=== PATIENT | female | born 1960 | race Caucasian/White ===

== ENCOUNTER 2017-02-26 09:05 | Inpatient (IN) | payer BC ==
[2017-02-23 08:33] LABS: BASOPHILS 0.6 %; BASOPHILS ABSOLUTE 0.03 10/3/uL (0.0-0.16); EOSINOPHILS 2.4 %; EOSINOPHILS ABSOLUTE 0.12 10/3/uL (0.0-0.53); HEMOGLOBIN 14.9 g/dL (12.0-16.0); IMMATURE GRANULOCYTES 0.2 %; IMMATURE GRANULOCYTES ABSOLUTE 0.01 10/3/uL (0.0-0.11); LYMPHOCYTES 32.1 %; MEAN CORPUS HGB CONC 34.1 g/dL (32.0-36.0); MEAN CORPUSCULAR HEMOGLOB 29.4 pg (26.0-34.0); MEAN PLATELET VOLUME 9.6 fL (9.2-13.0); MONOCYTES 6.8 %; MONOCYTES ABSOLUTE 0.34 10/3/uL (0.21-1.20); NEUTROPHILS 57.9 %; NEUTROPHILS ABSOLUTE 2.89 10/3/uL (2.02-8.40); PLATELET COUNT 257 10/3/uL (150-400); RBC DISTRIBUTION WIDTH 12.6 % (12.0-16.0); RED CELL COUNT 5.06 10/6/uL (4.0-5.6)
[2017-02-23 08:34] LABS: HEMATOCRIT 43.7 % (36.0-48.0); MANUAL DIFF NO %; MEAN CORPUSCULAR VOLUME 86.4 fL (80-100)
[2017-02-23 08:39] LABS: PARTIAL THROMBO TIME 26.3 SEC (22.5-37.2); PROTIME (NOT ORD) 13.3 SEC (12.0-14.5)
[2017-02-23 09:09] LABS: A/G RATIO 1.2 (0.7-1.9); ALKALINE PHOSPHATASE 74 U/L (45-117); CALCIUM, SERUM 9.2 MG/DL (8.5-10.4); CHLORIDE, SERUM 108 MMOL/L (96-112); CHOL/HDL RATIO(NOT ORDER) 3.1 (0-5); CHOLESTEROL 184 MG/DL (< 200); CREATININE 0.78 MG/DL (0.55-1.02); GFR AFRICAN AMERICAN 99 ML/MIN (>=60); GFR NON AFRICAN AMERICAN 86 ML/MIN (>=60); GLOBULIN 3.3 G/DL (2.5-4.1); GLUCOSE, SERUM 87 MG/DL (60-99); HDL CHOLESTEROL 59 MG/DL (> 49); IRON, SERUM 83 MCG/DL (35-150); LDL CHOLESTEROL 108 MG/DL (< 130); NON-HDL CHOLESTEROL 125 MG/DL (< 160); POTASSIUM, SERUM 4.2 MMOL/L (3.5-5.3); SGOT(AST) 11 U/L (5-40); SGPT(ALT) 10 U/L (5-65); SODIUM, SERUM 142 MMOL/L (135-148); TOTAL BILIRUBIN 0.4 MG/DL (0-1.2); TOTAL PROTEIN 7.3 G/DL (6.0-8.5); TRIGLYCERIDE 85 MG/DL (< 150)
[2017-02-23 09:14] LABS: BUN (BLOOD UREA NITROGEN) 19 MG/DL (6-23); CO2 (CARBON DIOXIDE) 29 MMOL/L (24-34); FOLATE 19.8 NG/ML (>5.2)
[2017-02-23 09:36] LABS: ASCORBIC ACID (UR NOT ORDER) NEG (NEG); BILIRUBIN, URINE NEGATIVE (NEG); KETONE, URINE NEGATIVE (NEG); LEUKOCYTE ESTERASE(NOT OR NEG (NEG); WBC (NOT ORDERED) (RFLEX) 1 (0-5)
--- NOTE | ~2017-02-26 | OP ---
Record Of Operation [facility] [address] [place]. [address] NAME: MARYAM PUENTES : 64 STATUS : ADM IN PAT#: [id number] AGE: 57 ADM/REG DATE : 02/26/17 MR#: [id number] REPORT SERV DATE: 02/27/17 DICTATED BY: NORMAN KNAPP DATE: 02/26/17 REPORT STATUS : Draft TRANSCRIBED BY: HERMES DATE: 02/26/17 DATE OF PROCEDURE: PREOPERATIVE DIAGNOSIS: Status post gastric band placed by Dr. Jones, now with band intolerance, and severe obesity. POSTOPERATIVE DIAGNOSIS: Status post gastric band placed by Dr. Jones, now with band intolerance and severe obesity. OPERATION: Gastric band explantation and conversion to a laparoscopic sleeve gastrectomy and repair of a large hiatal hernia with a posterior crural repair. SURGEON: Norman Knapp M.D. ANESTHESIA: Endotracheal. COMPLICATION: None. INDICATION OF THE OPERATION: This is a 57-year-old white female who is status post a gastric band that was placed by Dr. Randall Jones in 2006. She had a maximum weight loss of about 20% of her excess weight. She had a lot of intolerance reflux, pain, discomfort, gastric prolapse on the pouch and now has developed pain, intractable prolapse as well as a hiatal hernia and continued with poor weight loss, and severe obesity. Her BMI is 35.6, and her weight is 214. DESCRIPTION OF OPERATION: The patient was taken to the operating room, and after adequate general anesthesia, was prepped and draped in a sterile manner. First, we made an incision on top of the access port, carefully went all the way down to subcutaneous tissue with the cautery. Excised the encapsulation tissue around the port, elevated the port, and then started taking down the sutures and the adhesions around the port and then removed the port completely. As soon as we pulled out the tubing the tubing was already broken and came out very easy with no problems. We did remove some of the encapsulation tissue around that area that was around the port with the cautery and then proceeded to put a total of 5 trocars initially and then we put a 6 trocar because of the presence of the large hiatal hernia we had to fix it. First we identified the tubing, we visualized the whole tubing with no problems and then started putting the liver retractor, started taking the adhesions around the buckle of the band until the band was completely mobilized, transected the band to get out of the tunnel and then removed the band with the tubing outside of the abdomen with no problems. Then, we started completely the liver from the stomach using the Harmonic Scalpel and then started taking down the gastrogastric plication. Following the tunnel from the band with the Harmonic Scalpel, we went just lateral as we could and then started peeling and incising the encapsulation tissue, scar tissue to mobilize and stretch that area of the stomach as much as we could. Then, we decided to enter the lesser sac at the level of the lower body of the stomach next to the greater curvature and started dissecting the greater curvature all the way up to the fundus and mobilized the fundus all the way up to the left roselyn. There was a lot of adhesions in the posterior stomach around Record Of Operation [facility] [address] [place]. [address] NAME: MARYAM PUENTES : 64 STATUS : ADM IN [facility]#: [id number] AGE: 57 ADM/REG DATE : 02/26/17 MR#: [id number] REPORT SERV DATE: 02/27/17 DICTATED BY: NORMAN KNAPP DATE: 02/26/17 REPORT STATUS : Draft TRANSCRIBED BY: HERMES DATE: 02/26/[address] she had the previous band. After we started taking all those adhesions, we identified there was an evidence of a hiatal hernia. It was all scarred down and it seems like there was some Ethibond stitches in the anterior crura, potentially small hiatal defect was fixed there but definitely there was an evidence of a large hernia sac, and so we decided to put an additional trocar in the epigastrium, put a scope on the top and started dissecting and opened the hepatogastric ligament and exposed the right roselyn and then carefully started dissecting the right roselyn, and we did identify there was definitely a hiatal hernia at that point. We started dissecting the right roselyn and then we mobilized the esophagus and started dissecting the left roselyn from the left side. There was a difficult and tedious dissection as there was a lot of hernia sac and scar tissue from the previous band. We had to surround the whole esophagus by taking down the previous stitches that were placed on the crura, that scar tissue. When we opened that there was also a hernia sac on the top and so after we mobilized and encircled the esophagus completely, we were able to pull it down into the EG junction. So, there was definitely a component of stomach in the chest as well as the hernia sacs. We were able to mobilize all that and removed the hernia sac with the Harmonic Scalpel and then proceeded to elevate the esophagus with an and blunt dissector and then carefully identified both crura posteriorly. We dissected completely after tedious dissection, elimination and excision of the hernia sac. Mobilization of the EG junction into the intraabdominal cavity and then closing the posterior crura with two [id number] stitches approximated completely with no tension. We were able to slide a 36-Slovenian calibration tube and put it in and out to verify there was no evidence of obstruction on that level. We then continued dissection on the greater curvature all the way down to the distal antrum with the Harmonic Scalpel to about 3 cm or so from the pylorus. After the whole stomach was mobilized and all the adhesions were taken down posteriorly then we introduced a 36-Slovenian blunt-tip bougie suction catheter all the way down to the distal antrum, put it on suction to delineate well the stomach and start stapling about 5 cm from the pylorus using the echelon automatic stapler with a green load and staple reinforcement using the SeamGuard. We used a total of five staplings from the bottom to the top. Staple line looked intact. There was no evidence of bleeding or oozing. We did mobilize the stomach specimen and then started tacking the greater omentum with interrupted Vicryl 2 sutures in the top middle lower portions. We used several sutures doing that about five to stabilize the orientation of the sleeve pouch. Then, we removed the calibration tube and put it in and out to verify there was no evidence of obstruction and then removed the stomach specimen through the 15 mm trocar site after we stretched it with a Anisha and then closed that fascia defect with an EFX fascia closure device using a Vicryl #0. Then removed all the trocars and liver retractor under direct visualization and closed all incisions with subcuticular Monocryl. The patient tolerated the procedure well. Did not have any problems. DUKE Norman Leach M.D. / [id number] Record Of Operation [address] [place]. [address] NAME: MARYAM PUENTES : 64 STATUS : ADM IN PAT#: [id number] AGE: 57 ADM/REG DATE : 02/26/17 MR#: [id number] REPORT SERV DATE: 02/27/17 DICTATED BY: NORMAN KNAPP DATE: 02/26/17 REPORT STATUS : Draft TRANSCRIBED BY: HERMES DATE: 02/26/17 CC: Norman Knapp M.D.
--- NOTE | ~2017-02-26 | HP ---
History And Physical [facility] [address] [place]. [address] NAME: MARYAM PUENTES : 64 STATUS : PRE IN PAT#: [id number] AGE: 57 ADM/REG DATE : MR#: [id number] REPORT SERV DATE: 02/25/17 DICTATED BY: NORMAN KNAPP DATE: 02/25/17 REPORT STATUS : Draft TRANSCRIBED BY: HERMES DATE: 02/25/17 DATE OF ADMISSION: 02/26/2017 CHIEF COMPLAINT: Morbid obesity, status post LAGB with gastric prolapse and pouch enlargement. HISTORY OF PRESENT ILLNESS: The patient is a pleasant 57-year-old female who presents status post LAGB surgery with hiatal hernia repair in [address] Randall Jones. A 9.75 cm lap band device was placed at that time. The patient had an initial weight of 235.5 pounds and a BMI of 39.8. She did well initially losing about 80 pounds, but over the last few years, she has had to have her band deflated due to gastric prolapse and pouch enlargement. We have tried conservative management of the prolapse, but have been unable to restore proper restriction without putting the patient at risk for aspiration and further enlargement of the pouch. Additionally, she started to experience intermittent port pain with activity, but denies any erythema or warmth. The patient voices a desire to convert from LAGB to sleeve gastrectomy. She has a current weight of 212.2 pounds with a BMI of 35.3. Additionally, she has comorbidities including reflux and hypothyroidism, which is treated currently with [place] Thyroid. PAST SURGICAL HISTORY: Surgical history is significant for bariatric surgery on 07/29/2006, LAGB [address] Randall Jones with a starting weight of 235.5 pounds and BMI of 39.8. In 10/2008, she underwent mastopexy with augmentation as well as abdominoplasty; in 2012, cervical disk repair; in 06/2015, left wrist surgery due to arthritis. FAMILY HISTORY: Noncontributory. SOCIAL HISTORY: The patient denies nicotine use or EtOH abuse. MEDICATIONS: The patient's current medications include [place] Thyroid 30 mg daily and intermittent use of antireflux medications. ALLERGIES: THE PATIENT REPORTS ALLERGY TO CODEINE, WHICH CAUSES HIVES AND RESPIRATORY DISTRESS. SHE IS UNABLE TO TOLERATE HYCET. REVIEW OF SYSTEMS: Please refer to HPI. PHYSICAL EXAMINATION: VITAL SIGNS: Stable. No acute distress. GENERAL APPEARANCE: Well nourished and morbidly obese, no acute distress. Ambulating normally. HEAD: Pupils equal, round, reactive to light. Glasses present. EAR, NOSE, AND THROAT: ENT within normal limits. NECK: Supple. Trachea midline with no masses. CARDIOVASCULAR: Heart auscultation; regular rate and rhythm. LUNGS: Respiratory effort; no dyspnea; auscultation, no wheezes, rales, crackles, rhonchi. History And Physical [address] [place]. [address] NAME: MARYAM PUENTES : 64 STATUS : PRE IN [facility]#: [id number] AGE: 57 ADM/REG DATE : MR#: [id number] REPORT SERV DATE: 02/25/17 DICTATED BY: NORMAN KNAPP DATE: 02/25/17 REPORT STATUS : Draft TRANSCRIBED BY: HERMES DATE: 02/25/17 Breath sounds normal and clear to auscultation. ABDOMEN: On inspection and palpitation no tenderness, guarding, masses, or rebound tenderness. Abdomen is soft and nondistended. LAGB port is palpable without tenderness at present. Bowel sounds normal. PSYCHIATRIC: Good judgment and insight. Normal mood and affect. The patient is active and alert, oriented to time, place, and person. LABORATORY DATA: Completed at [facility]. White blood count 5.0. PTT 26.3, PT 13.3, INR 1.0. Sodium 142, potassium 4.2, BUN 19, creatinine 0.78, glucose 87. TSH 4.220. Hemoglobin A1c 5.4. Bariatric GI air study shows presence of gastric band with a hiatal hernia which appears to be near the level of the diaphragm hiatus, minimal gastroesophageal reflux. Otherwise, normal exam. ASSESSMENT AND PLAN: The patient is to be admitted, status post laparoscopic gastric banding in 2005, with hiatal hernia repair due to gastric prolapse with pouch enlargement, a technical failure of her primary surgery. She has been unable to tolerate restriction leading to weight gain. At this time, we will proceed with conversion from the laparoscopic adjustable gastric band to the sleeve gastrectomy for the treatment of morbid obesity with the patient having a weight of 212.5 and a BMI of 35.3. The risks, indications, and alternatives to the procedure have been discussed in length, and at this time, the patient would like to proceed with conversion to the sleeve gastrectomy. This patient meets the criteria and fulfils the NIH guidelines for bariatric surgery according to the 1991 consensus having either a BMI of more than 40 kg/m2 or BMI between 35-40 kg/m2 with associated comorbidities, has been overweight for at least 5 years and tried to lose weight several times and failed to maintain weight loss even with physician supervised programs. The sleeve gastrectomy surgery in our experience can give this patient an average of 50% to 60% of excess weight loss over the next 12 to 18 months; however, this patient does understand due to the presence of previous bariatric surgery, the patient may experience a lower degree of excess weight loss over a longer period of time. This patient is aware of the risks and complications associated with the procedure and ultimately an increased risk based on previous surgical procedures which include staple leak, bleeding, obstruction, and infection, which were discussed in length. Also, this patient understands the importance of followup in order to achieve good result. DICTATED BY: Norman Knapp M.D. JP/HERMES Norman Leach M.D. / [id number] CC: Natalia Javier W. A.
[~2017-02-26 09:05] MED LIST: CYMBALTA60 PO; LEVOTHYROXIN50 MCG PO; MULTIVITAMI1 PO; VITAMIN D1000 UNI1 PO
[2017-02-27] MEDS ORDERED: SUCR PO (14:37)
== END 2017-02-27 15:54 | disposition home or self-care (01) | DRG 328 ==
LOC: SDC/OF 09:05 → 2SO 16:58
PROVIDERS: Surgery
PROC: 0BQS4ZZ (ICD-10-PCS; 2017-02-26)
PROC: 0DP64CZ Removal of Extraluminal Device from Stomach, Percutaneous Endoscopic Approach (ICD-10-PCS; principal; 2017-02-26 10:45)
PROC: 0DB64Z3 Excision of Stomach, Percutaneous Endoscopic Approach, Vertical (ICD-10-PCS; 2017-02-26 10:45)
PROC: 0BQR4ZZ (ICD-10-PCS; 2017-02-26 10:45)
DX: K95.09 Other complications of gastric band procedure (principal); E66.01 Morbid (severe) obesity due to excess calories; Z68.35 Body mass index [BMI] 35.0-35.9, adult; K44.9 Diaphragmatic hernia without obstruction or gangrene; Y73.8 Miscellaneous gastroenterology and urology devices associated with adverse incidents, not elsewhere classified; K21.9 Gastro-esophageal reflux disease without esophagitis; E03.9 Hypothyroidism, unspecified; M19.90 Unspecified osteoarthritis, unspecified site; Z98.890 Other specified postprocedural states; Z88.5 Allergy status to narcotic agent; Z88.8 Allergy status to other drugs, medicaments and biological substances
CPT/HCPCS: 74246; 80053; 80061; 81001; 82607; 82746; 83036; 83540; 84443; 85025; 85610; 85730; 88307; 93005; A9270-GY; C9113; J0690; J2250; J2405; J2550; J2710; J2795; J3010

== ENCOUNTER 2017-02-28 13:20 | Emergency (ER) | payer BC ==
[2017-02-28 11:51] LABS: BASOPHILS 0.2 %; BASOPHILS ABSOLUTE 0.02 10/3/uL (0.0-0.16); EOSINOPHILS 0.3 %; EOSINOPHILS ABSOLUTE 0.03 10/3/uL (0.0-0.53); HEMATOCRIT 41.3 % (36.0-48.0); HEMOGLOBIN 14.1 g/dL (12.0-16.0); IMMATURE GRANULOCYTES 0.2 %; IMMATURE GRANULOCYTES ABSOLUTE 0.02 10/3/uL (0.0-0.11); LYMPHOCYTES 13.2 %; LYMPHOCYTES ABSOLUTE 1.29 10/3/uL (0.67-4.30); MEAN CORPUS HGB CONC 34.1 g/dL (32.0-36.0); MEAN CORPUSCULAR HEMOGLOB 29.7 pg (26.0-34.0); MEAN CORPUSCULAR VOLUME 87.1 fL (80-100); MEAN PLATELET VOLUME 9.7 fL (9.2-13.0); MONOCYTES 7.9 %; MONOCYTES ABSOLUTE 0.77 10/3/uL (0.21-1.20); NEUTROPHILS 78.2 %; NEUTROPHILS ABSOLUTE 7.61 10/3/uL (2.02-8.40); PLATELET COUNT 218 10/3/uL (150-400); RBC DISTRIBUTION WIDTH 12.7 % (12.0-16.0); RED CELL COUNT 4.74 10/6/uL (4.0-5.6)
[2017-02-28 11:52] LABS: MANUAL DIFF NO %; WHITE BLOOD CELLS 9.7 10/3/uL (4.5-10.5)
[2017-02-28 12:07] LABS: A/G RATIO 0.9 (0.7-1.9); ALBUMIN 3.6 G/DL (3.5-5.0); ALKALINE PHOSPHATASE 71 U/L (45-117); BUN (BLOOD UREA NITROGEN) 8 MG/DL (6-23); CALCIUM, SERUM 8.9 MG/DL (8.5-10.4); CHLORIDE, SERUM 103 MMOL/L (96-112); CO2 (CARBON DIOXIDE) 29 MMOL/L (24-34); CREATININE 0.72 MG/DL (0.55-1.02); GFR AFRICAN AMERICAN 109 ML/MIN (>=60); GFR NON AFRICAN AMERICAN 94 ML/MIN (>=60); GLOBULIN 3.9 G/DL (2.5-4.1); GLUCOSE, SERUM 94 MG/DL (60-99); POTASSIUM, SERUM 3.8 MMOL/L (3.5-5.3); SGOT(AST) 173 U/L (5-40); SGPT(ALT) 151 U/L (5-65); SODIUM, SERUM 136 MMOL/L (135-148); TOTAL BILIRUBIN 1.2 MG/DL (0-1.2); TOTAL PROTEIN 7.5 G/DL (6.0-8.5)
[~2017-02-28 13:20] MED LIST changes: +SUCR PO
== END 2017-02-28 15:42 | disposition home or self-care (01) ==
LOC: ER 13:20
PROVIDERS: Emergency Medicine
DX: M79.89 Other specified soft tissue disorders (principal); Z88.5 Allergy status to narcotic agent; Z79.899 Other long term (current) drug therapy
CPT/HCPCS: 80053; 85025; 93971; 96374; 96375; 99284; J2405